=== PATIENT | male | born 1945 | race Caucasian/White ===

== ENCOUNTER 2018-12-11 18:08 | Emergency (ER) | payer OTHER ==
[~2018-12-11] VITALS: Ht 165.1 cm; Wt 100.7 kg
[~2018-12-11 18:08] MED LIST: FLUT27.5 NS; LISI-420 PO; TAMS0.4C96 PO; [UNRECOGNIZED DRUG - REMARK]
[2018-12-11 18:24] VITALS: BP 134/74
--- NOTE | 2018-12-11 18:34 | NUR ---
73 YO M BIBFAMILY W/ C/O DIZZINESS WITH SUDDEN MOVEMENTS X LAST NIGHT. PT WAS SEEN AT [facility] ER RECENTLY AND RECOVERING FROM DIARRHEA. DENIES RECENT INJURY TO HEAD/NECK. NO FACIAL ASYMMETRY, FULL CLEAR SPEECH, AMBULATORY WITH STEADY GAIT. PERRLA INTACT. PUPILS 3MM. AAOX4, GCS 15. CMS INTACT. RR EVEN AND UNLABORED, LUNGS BL CLEAR. ABD SOFT, NON-TENDER. BOWEL SOUNDS ACTIVE X 4. SKIN WARM/DRY TO THE TOUCH. PT REPORTS THAT HE WAS SEEN BY ENT TODAY. ER MD NOTIFIED. PT NEEDS MET, SAFETY PRECAUTIONS IN PLACE, WILL CONTINUE TO MONITOR.
--- NOTE | 2018-12-11 19:15 | NUR ---
REPORT GIVEN TO ALICE VILLALTA AT THIS TIME.
--- NOTE | 2018-12-11 19:35 | NUR ---
PT AAO X4, GCS 15, ABLE TO SPEAK WITH FULL COMPLETE SENTENCES. PUPILS PERRLA 3/3 MM. RESPIRATIONS EVEN AND UNLABORED, BL LUNG CLEAR. SKIN WARM/PINK/DRY, +PMSC. ABDOMEN ROUND, FIRM, HYPOACTIVE BOWEL SOUND X4. STATED DIZZINESS. PLACED PT ON STONEHAND SR, BP WNL. STATED DIZZINESS. DR. STEPHEN MADE AWARE OF PT STATUS. WILL CONTINUE TO MONITOR
--- NOTE | 2018-12-11 19:37 | NUR ---
AT BEDSIDE EVALUATION PT
[2018-12-11] MEDS ORDERED: KETOROLAC 30 MG/ML VIAL IVP ONE (20:15)
[2018-12-11] MEDS ORDERED: NACL 0.9% 1,000 ML IV ONE (20:15)
[2018-12-11] MEDS ORDERED: MECLIZINE 25 MG TAB PO ONE (20:15)
[2018-12-11 20:33] LABS: BASOPHILS # (AUTO) 0.2 K/uL (0.00-0.22); BASOPHILS % (AUTO) 4.8 % (0.0-2.0); EOSINOPHILS # (AUTO) 0.1 K/uL (0-0.4); EOSINOPHILS % (AUTO) 2.9 % (0.0-4.0); HEMATOCRIT 44.1 % (36-52); HEMOGLOBIN 14.6 g/dL (12.0-18.0); LYMPHOCYTES # (AUTO) 0.7 K/uL (2.0-11.5); MEAN CORPUSCULAR HEMOGLOBIN 31 pg (27-31); MEAN CORPUSCULAR HGB CONC 33 g/dL (33-37); MEAN CORPUSCULAR VOLUME 92.6 fL (80-94); MONOCYTES # (AUTO) 0.6 K/uL (0.8-1.0); MONOCYTES % (AUTO) 11.3 % (1.7-9.3); NEUTROPHILS # (AUTO) 3.4 K/uL (1.8-7.7); PLATELET COUNT (AUTO) 205 K/uL (140-450); RED BLOOD CELL COUNT(AUTO) 4.76 MIL/uL (4.20-6.10); RED CELL DISTRIBUTION WIDTH 13.9 % (11.6-13.7)
[2018-12-11 20:52] LABS: ANION GAP 5.8 (8-16); CHLORIDE 112 mmol/L (98-107); POTASSIUM 4.8 mmol/L (3.5-5.1); SODIUM SERUM 143 mmol/L (136-145)
[2018-12-11 20:53] LABS: GLUCOSE 97 mg/dL (74-106); UREA NITROGEN, BLOOD 10 mg/dL (7-18)
[2018-12-11 20:54] LABS: ALBUMIN 3.5 g/dL (3.4-5.0); ASPARTATE AMINOTRANSFERASE 26 U/L (15-37); TOTAL BILIRUBIN 0.5 mg/dL (0.0-1.0)
[2018-12-11 21:15] LABS: APPEARANCE,URINE CLEAR (CLEAR); BILIRUBIN,URINE NEGATIVE (NEGATIVE); BLOOD, URINE NEGATIVE (NEGATIVE); COLOR,URINE YELLOW (YELLOW); LEUKOCYTE ESTERASE ,URINE TRACE (NEGATIVE); NITRITE, URINE NEGATIVE (NEGATIVE); UGLUCOSE NEGATIVE (NEGATIVE)
--- NOTE | 2018-12-11 21:45 | NUR ---
Patient discharged with v/s stable. Written and verbal after care instructions given and explained. Patient alert, oriented and verbalized understanding of instructions. Ambulatory with steady gait. All questions addressed prior to discharge. ID band removed. Patient advised to follow up with PMD. Rx of ANTIVERT 25 MG given. Patient educated on indication of medication including possible reaction and side effects. Opportunity to ask questions provided and answered.
[2018-12-11 21:47] VITALS: BP 110/58
== END 2018-12-11 21:45 | disposition home or self-care (01) ==
LOC: MED 18:08
DX: E86.0 Dehydration (principal); I10 Essential (primary) hypertension; Z79.899 Other long term (current) drug therapy
CPT/HCPCS: 36415; 80053; 81003; 85025; 93005; 96361; 96374; 99284; J1885; J7030; J8597